=== PATIENT | female | born 1935 | race African-American/Black ===

== ENCOUNTER 2017-03-28 22:18 | Emergency (ER) | payer OTHER ==
[~2017-03-28 22:18] MED LIST: ? HTN MED; ACET500CAP PO; ANUSOL-HC25 MG; ASA5GR PO; ASAB PO; AT25 PO; ATEN100 PO; ATEN25 PO; ATEN50 PO; BISR PR; C2 PO; C25 PO; COLCH6 PO; CONSTULOSE PO; COZ50 PO; COZAAR100 MG PO; CYMBALTA60 PO; CYPROHEPTAD4 MG OR; DEPASPRINK PO; DEXA5B PO; DSS PO; EXELON4.6T TOP; FLORASTOR250 MG PO; FOSAMAX70 MG PO; HALF81 PO; HYDROMET1 ML PO; HYGROTON 25 MG25 MG OR; HYGROTON 25 MG25 MG PO; KDUR20 PO; KLOR-CON M2020 MEQ PO; KLOR-CON20 MEQ PO; LEVAQUIN750 MG PO; LIDODERM T; LOP25 PO; MAXZIDE PO; METAMUCIL CAN7 OZ PO; MIRALAXPKT PO; MUCINEX600 MG PO; NAMENDA10 MG PO; NAMENDA5 PO; NAP500 PO; NATURA2 OP; NEXIUM; NEXIUM40 PO; NORCO1 TA1 PO; NORV5 PO; P5 PO; PEP20 PO; PERI-COLACE1 TAB PO; POTASSIUM PO; PRIN20 PO; PROBIOTIC CAPSULES PO; PROTONIX PO; PROTONIXIV IV; SENOKOTS PO; SEROQUEL1C PO; SEROQUEL50 MG PO; SORB PO; SYSTANE OPH; TEARS NATURA OP; ULTRAM50 PO; XARELTO10 MG PO; Z300 PO
[2017-03-28 23:59] LABS: BASOPHILS 0.2 %; BASOPHILS ABSOLUTE 0.02 10/3/uL (0.0-0.16); EOSINOPHILS ABSOLUTE 0.09 10/3/uL (0.0-0.53); IMMATURE GRANULOCYTES 0.6 %; IMMATURE GRANULOCYTES ABSOLUTE 0.05 10/3/uL (0.0-0.11); LYMPHOCYTES 26.7 %; LYMPHOCYTES ABSOLUTE 2.29 10/3/uL (0.67-4.30); MEAN PLATELET VOLUME 9.6 fL (9.2-13.0); MONOCYTES ABSOLUTE 0.94 10/3/uL (0.21-1.20); NEUTROPHILS 60.5 %; NEUTROPHILS ABSOLUTE 5.19 10/3/uL (2.02-8.40); PLATELET COUNT 282 10/3/uL (150-400); RED CELL COUNT 4.76 10/6/uL (4.0-5.6)
[2017-03-29] LABS: ER CBC TAT 0 Hrs 10 Mins; HEMATOCRIT 40.1 % (36.0-48.0); HEMOGLOBIN 13.2 g/dL (12.0-16.0); MANUAL DIFF NO %; MEAN CORPUS HGB CONC 32.9 g/dL (32.0-36.0); MEAN CORPUSCULAR HEMOGLOB 27.7 pg (26.0-34.0); MEAN CORPUSCULAR VOLUME 84.2 fL (80-100); RBC DISTRIBUTION WIDTH 15.2 % (12.0-16.0); WHITE BLOOD CELLS 8.6 10/3/uL (4.5-10.5)
[2017-03-29 00:17] LABS: A/G RATIO 0.7 (0.7-1.9); ALBUMIN 2.9 G/DL (3.5-5.0); ALKALINE PHOSPHATASE 133 U/L (45-117); BUN (BLOOD UREA NITROGEN) 13 MG/DL (6-23); CALCIUM, SERUM 9.3 MG/DL (8.5-10.4); CHLORIDE, SERUM 107 MMOL/L (96-112); CO2 (CARBON DIOXIDE) 24 MMOL/L (24-34); CREATININE 0.55 MG/DL (0.55-1.02); GFR AFRICAN AMERICAN 100 ML/MIN (>=60); GFR NON AFRICAN AMERICAN 86 ML/MIN (>=60); GLOBULIN 4.3 G/DL (2.5-4.1); GLUCOSE, SERUM 96 MG/DL (60-99); POTASSIUM, SERUM 3.4 MMOL/L (3.5-5.3); SGOT(AST) 23 U/L (5-40); SGPT(ALT) 23 U/L (5-65); SODIUM, SERUM 140 MMOL/L (135-148); TOTAL BILIRUBIN 0.4 MG/DL (0-1.2); TOTAL PROTEIN 7.2 G/DL (6.0-8.5)
[2017-03-29] MEDS ORDERED: CONSTULOSE PO (22:53)
[2017-03-29] MEDS ORDERED: ASABAYER PEG (22:53)
[2017-03-29] MEDS ORDERED: SEROQUEL50 MG PEG (22:54)
[2017-03-29] MEDS ORDERED: LOP25 PEG (22:55)
[2017-03-29] MEDS ORDERED: DEPASPRINK PEG (22:55)
[2017-03-29] MEDS ORDERED: PEP20 PEG (22:57)
[2017-03-29] MEDS ORDERED: ULTRAM50 PEG (22:58)
[2017-03-29] MEDS ORDERED: NORV5 PEG (22:58)
[2017-03-29] MEDS ORDERED: X25 PEG (22:59)
[2017-03-29] MEDS ORDERED: CIP2 PEG (23:01)
[2017-03-29] MEDS ORDERED: DEXA5B PEG (23:02)
== END 2017-03-29 02:02 | disposition home or self-care (01) ==
LOC: ER 22:18
PROVIDERS: Specialist
DX: R19.7 Diarrhea, unspecified (principal); I10 Essential (primary) hypertension; F03.90 Unspecified dementia, unspecified severity, without behavioral disturbance, psychotic disturbance, mood disturbance, and anxiety; D64.9 Anemia, unspecified; Z88.2 Allergy status to sulfonamides; Z79.899 Other long term (current) drug therapy; Z79.82 Long term (current) use of aspirin
CPT/HCPCS: 80053; 81001; 85025; 99284

== ENCOUNTER 2017-03-29 17:48 | Inpatient (IN) | payer MEDICARE ==
[~2017-03-29] VITALS: Ht 167.6 cm; Wt 81.4 kg
--- NOTE | ~2017-03-29 | CN ---
Consultation Report [facility] [address] [place]. [address] NAME: CHARLA ASHFORD : 31 STATUS : ADM IN [facility]#: [id number] AGE: 82 ADM/REG DATE : 03/31/17 MR#: [id number] REPORT SERV DATE: 04/03/17 DICTATED BY: AIDEE DUCKWORTH DATE: 04/02/17 REPORT STATUS : Draft TRANSCRIBED BY: MODL DATE: 04/02/17 CONSULT DATE OF CONSULTATION: 04/01/2017 REFERRING PHYSICIAN: Hospitalist Service. REASON FOR CONSULTATION: Proctitis. BRIEF HISTORY: The patient is an 82-year-old female with advanced Lewy body dementia, was admitted to the hospital for constipation and general complaints of not feeling well. The patient has a history of dysphagia with a feeding tube as well as multiple other medical issues. She was doing well and was being treated with multiple laxatives and enemas as the CT scan showed a large fecal impaction. At the family's request, CT scan was repeated on 03/31/2017 evening to make sure the stool burden had decreased. CT scan showed severe proctitis as well as possible extraperitoneal air to a very small degree. Although the patient is demented, she is able to alert her family if she is not feeling well. They stated during this time, she has had no complaints and has been afebrile and tolerating tube feeds. She otherwise has been in her baseline state of health. REVIEW OF SYSTEMS: Review of systems was not able to be obtained due to the patient's dementia. PAST MEDICAL HISTORY: Significant for what was mentioned in HPI plus chronic anemia, irritable bowel syndrome, dysphagia, hypertension. SOCIAL HISTORY: Negative x3. FAMILY HISTORY: Noncontributory. MEDICATIONS: Reviewed and please see chart for full detail. PHYSICAL EXAMINATION: GENERAL: The patient is pleasant, in nontoxic appearing. HEENT: Head is normocephalic, atraumatic. CHEST: Clear to auscultation bilaterally. ABDOMEN: Soft, benign. RECTAL: No masses or bleeding or other abnormalities noted. EXTREMITIES: Warm and perfused. NEURO: She moves all extremities equally. PSYCH: She is largely demented although she can speak and is sometimes more clear than other times per her family. LABS: White cell count slightly elevated at 13. Remainder labs were reviewed. Consultation Report [facility] [address] [place] [address] NAME: CHARLA ASHFORD : 31 STATUS : ADM IN PAT#: [id number] AGE: 82 ADM/REG DATE : 03/31/17 MR#: [id number] REPORT SERV DATE: 04/03/17 DICTATED BY: AIDEE DUCKWORTH DATE: 04/02/17 REPORT STATUS : Draft TRANSCRIBED BY: MODL DATE: 04/02/17 IMAGING: CT scan done on 03/31/2017 was reviewed by me and with the radiologist. There is significant inflammation in the distal rectum. I do not appreciate any intraperitoneal air, but that was the report from the radiologist. There is no significant intraabdominal colitis or fluid or pneumoperitoneum. ASSESSMENT AND PLAN: This is an 82-year-old female with severe proctitis which I suspect is due to ulceration. I have had a long discussion with the family and they do not wish to have any sort of surgical procedures in light of her dementia. At this point, we will treat her with IV antibiotics and bowel rest and plan on repeating her CT scan in several days, and if things are improved at that time, we can restart tube feeds. We will follow along although at the family's request we do not want her to have surgery. SELAM/KAITLIN Aidee Duckworth MD / [id number] CC: Robin Castellanos MD
--- NOTE | ~2017-03-29 | HP ---
History And Physical [facility] [id number] [place]. [address] NAME: CHARLA CLEMENTS : 31 STATUS : ADM Hui PAT#: [id number] AGE: 82 ADM/REG DATE : 03/29/17 MR#: [id number] REPORT SERV DATE: 03/30/17 DICTATED BY: KENY KNOTT DATE: 03/29/17 REPORT STATUS : Draft TRANSCRIBED BY: MODL DATE: 03/29/17 DATE OF ADMISSION: 03/29/2017 CHIEF COMPLAINT: Diarrhea. HISTORY OF PRESENT ILLNESS: This is an 82-year-old female with advanced Lewy body dementia, dysphagia with feeding tube in place, chronic anemia, hypertension, who presents to the emergency room at [facility] with the above-mentioned complaint. History is obtained from the patient's daughter who is at bedside and reviewing data available on the [employer] system. According to the patient's daughter, she had been having semi-solid consistency stools about two or three times a day since last Wednesday. She says when she starts having the bowel movement she goes constantly for a couple hours at a time and they have to clean her numerous times until it stops. This was not how she used to be. During this time, she has had no fevers, chills, nor has she complained of any abdominal pain or discomfort. Actually, Mrs. Clements has advanced Lewy body dementia and hardly ever complains. So, she was finally brought to the emergency room here last night when she was evaluated and discharged home. They returned home, but her symptoms continued. She continued to have this diarrhea as they called it, and today they decided to bring her back to the emergency room to be reevaluated. In the emergency room, her CT scan of her abdomen and pelvis showed large stool bowel without any significant obstruction or other pathology. However, she did have a urinary tract infection along with a lactate of 3.3, and Hospitalist Service asked to admit her for further evaluation and treatment. At the time of my evaluation, she denied any chest pain or palpitations. She had no orthopnea. Mrs. Clements understands simple questions, but sometimes make unintelligible answers. Most of the review of systems was obtained from the patient's daughter and family members who take care of the patient at home. She has not had any cough, hemoptysis, night sweats, or weight loss. She has not had any fevers, chills, nausea, or vomiting. No bleeding from anywhere has been noticed. No other history of recent travel or exposures. PAST MEDICAL HISTORY: Significant for advanced or end-stage Lewy body dementia, history of chronic anemia, irritable bowel syndrome, dysphagia leading to feeding tube placement. She is followed by Dr. Darwin Moore from Gastroenterology. SOCIAL HISTORY: She does not smoke, drink, or use recreational drug. FAMILY HISTORY: Noncontributory. MEDICATIONS: Her medications at home were reviewed by me in the chart today and reordered by me. REVIEW OF SYSTEMS: As in history of present illness. All other systems were reviewed in detail and are quite unremarkable. History And Physical [address] [address] NAME: CHARLA CLEMENTS : 31 STATUS : ADM Hui PAT#: [id number] AGE: 82 ADM/REG DATE : 03/29/17 MR#: [id number] REPORT SERV DATE: 03/30/17 DICTATED BY: KENY KNOTT DATE: 03/29/17 REPORT STATUS : Draft TRANSCRIBED BY: KAITLIN DATE: 03/29/17 PHYSICAL EXAMINATION: GENERAL: This is a pleasant 82-year-old not in any acute distress. HEENT: Her head is atraumatic and normocephalic. She is alert, awake, oriented to time, place, and person. Pupils are equal, reacting to light and accommodating. External ocular muscles are intact. Membranes are moist and pink. Sclerae are nonicteric. NECK: Supple with no jugular venous distention, lymphadenopathy, or thyromegaly. LUNGS: Clear to auscultation with no wheezes, rubs, or crackles. HEART: Heart sounds were regular with no murmurs, rubs, or gallops. ABDOMEN: Soft and nontender. Bowel sounds are present. EXTREMITIES: No cyanosis, clubbing, or edema. NEURO: Grossly intact, although she has advanced dementia and does not follow commands or answer appropriately. VITAL SIGNS: Her temperature today was 98.4, pulse 100, respirations 16 a minute, blood pressure was 155/74, and oxygen saturations were 99% breathing 2 L of oxygen via nasal cannula. LABORATORY DATA: Reviewed on the [employer] system showed a sodium of 146, potassium 3.1, chloride 109, CO2 of 27, BUN was 14 with a creatinine of 0.58, and calcium was 8.9. Alkaline phosphatase was 131, ALT and AST were within normal limits. Lipase was 45. Her lactate was 3.3. CBC was essentially within normal limits. Urinalysis showed trace leukocyte esterase, nitrite was negative, there was 9 wbc's and few bacteria. Films of the CT scan of her abdomen and pelvis were reviewed by me on the PACs today and interpreted by me, official Radiology comments were also reviewed. There is large stool ball seen and without any obstruction. Stool Hemoccult was positive as well. IMPRESSION: 1. Urinary tract infection. 2. Sepsis. 3. Advanced Lewy body dementia. 4. Chronic dysphagia with feeding tube. 5. Chronic anemia. 6. Hypertension. 7. Hysterectomy. PLAN: We will admit Ms Clements to the Hospitalist Service with telemetry for a 24-hour observation period. After cultures are drawn, we will start her on empiric IV antibiotics. We will check a repeat lactate as well and a procalcitonin. We will replace potassium. Follow CBC, CMP in the morning. We will also consult Dr. Darwin Moore to see her in the morning. A stool Clostridium difficile assay has been sent as well. We will continue all her other medications and treatments at this time, and place her on unfractionated heparin History And Physical [address] [address] NAME: CHARLA CLEMENTS : 31 STATUS : ADM Hui PAT#: [id number] AGE: 82 ADM/REG DATE : 03/29/17 MR#: [id number] REPORT SERV DATE: 03/30/17 DICTATED BY: KENY KNOTT DATE: 03/29/17 REPORT STATUS : Draft TRANSCRIBED BY: MODHarjinder DATE: 03/29/17 for DVT prophylaxis while here. I have discussed the above plans with the patient's daughter. Questions were answered and they are agreeable to the above recommendations. /KAITLIN Keny Knott M.D. / [id number] CC: Robin Castellanos MD
--- NOTE | ~2017-03-29 | DS ---
Discharge Summary [facility] [address] [place]. [address] NAME: CHARLA ASHFORD : 31 STATUS : DIS IN PAT#: [id number] AGE: 82 ADM/REG DATE : 03/31/17 MR#: [id number] REPORT SERV DATE: 04/05/17 DICTATED BY: ROBIN WORTHY DATE: 04/04/17 REPORT STATUS : Draft TRANSCRIBED BY: MODL DATE: 04/04/17 ADMISSION DATE: 03/31/2017 DISCHARGE DATE: 04/04/2017 DISCHARGE DIAGNOSES: 1. Severe proctitis, secondary to a fecal impaction. 2. Hypernatremia, resolving. 3. Hypokalemia. 4. Advanced Lewy body dementia. 5. Dysphagia with chronic feeding tube. 6. Initial admission diagnosis of urinary tract infection with sepsis, ruled out. 7. Hypertension. 8. Anemia of chronic disease. 9. Debilitated. CONSULTANTS: Dr. Duckworth, of General Surgery. PROCEDURES: None. HOSPITAL COURSE: This is an 82-year-old lady who was admitted to the hospital with initial diagnosis of urinary tract infection with sepsis. For details, please refer to excellent H and P dictated by Dr. Keny Scott. Upon admission, CT scan was clear. The patient was actually suffering from a fecal impaction and overflow diarrhea more than urinary tract infection with sepsis. The patient was given 2 rounds of enema as well as 2 L of GoLYTELY, and the patient has produced large amounts of feces. The patient was to be discharged on March 31 when the patient's family member apposed the discharge because they were convinced that the patient still had fecal impaction. CT of the scan was performed again at family's request to showed that she did not have any fecal impaction anymore. Interestingly, the repeat CT showed severe proctitis after evacuation of the fecal impaction. The degree of proctitis was severe enough to suspect possible septal ulceration and mucosal tears. The patient otherwise had completely benign vital signs and electrolytes and labs as well as physical exams. General Surgery was consulted who agreed to monitoring patient on antibiotics alone. The patient was monitored for 2 days and all throughout which patient's white blood cell count remained stable with normal procalcitonin levels. The patient was also clinically appearing very comfortable. The patient's tube feedings were started on April 03, and the patient had a repeat CT scan that was actually read as slightly more severe proctitis done prior to, but the repeat CT was performed with IV contrast which showed the mucosal inflammation better than prior CT which was done without contrast. Thus, the consensus is that the patient's proctitis is probably not any worse especially since the patient is tolerating diet well without any symptoms and with normal vital signs and normal labs. The patient will simply have a very close outpatient followup with a good bowel regimen so that she does not develop any more constipation or fecal impaction in the future. This was fortunate given the patient's baseline debilitated functional status with advanced Lewy body dementia because the patient will not have tolerated the surgery well. All of the above was explained in detail with the patient's family who understood. The patient is now being discharged home with home health with close Discharge Summary [address] [address] NAME: CHARLA ASHFORD : 31 STATUS : DIS IN PAT#: [id number] AGE: 82 ADM/REG DATE : 03/31/17 MR#: [id number] REPORT SERV DATE: 04/05/17 DICTATED BY: ROBIN WORTHY DATE: 04/04/17 REPORT STATUS : Draft TRANSCRIBED BY: KAITLIN DATE: 04/04/17 outpatient followup. DISPOSITION: Home with home health. DISCHARGE MEDICATIONS: No changes except for recommendation of bowel regimen with daily MiraLAX as well as lactulose. Of note, the patient's family has been holding lactulose which have caused the fecal impaction in the first place and thus the patient's family was thoroughly educated to not hold the lactulose or MiraLAX for that matter. The patient's family was educated regarding importance of maintenance regimen other than waiting for patient to be impacted before starting bowel regimen. FOLLOWUP: 1. Please follow up with PCP in the next one to two weeks. 2. Please follow up with Dr. Singh, General Surgery, in the next two to three weeks. A total of 35 minutes spent in coordinating this patient's discharge today. HAO/KAITLIN Robin Worthy MD / [id number]
[2017-03-29 20:57] LABS: BASOPHILS 0.2 %; BASOPHILS ABSOLUTE 0.02 10/3/uL (0.0-0.16); EOSINOPHILS 0.9 %; EOSINOPHILS ABSOLUTE 0.09 10/3/uL (0.0-0.53); ER CBC TAT 0 Hrs 11 Mins; HEMATOCRIT 40.2 % (36.0-48.0); HEMOGLOBIN 12.9 g/dL (12.0-16.0); IMMATURE GRANULOCYTES 0.5 %; IMMATURE GRANULOCYTES ABSOLUTE 0.05 10/3/uL (0.0-0.11); LYMPHOCYTES 22.1 %; LYMPHOCYTES ABSOLUTE 2.27 10/3/uL (0.67-4.30); MEAN CORPUS HGB CONC 32.1 g/dL (32.0-36.0); MEAN CORPUSCULAR HEMOGLOB 27.3 pg (26.0-34.0); MEAN CORPUSCULAR VOLUME 85.2 fL (80-100); MEAN PLATELET VOLUME 9.9 fL (9.2-13.0); MONOCYTES 7.1 %; MONOCYTES ABSOLUTE 0.73 10/3/uL (0.21-1.20); NEUTROPHILS 69.2 %; NEUTROPHILS ABSOLUTE 7.13 10/3/uL (2.02-8.40); PLATELET COUNT 289 10/3/uL (150-400); RBC DISTRIBUTION WIDTH 15.6 % (12.0-16.0); RED CELL COUNT 4.72 10/6/uL (4.0-5.6); WHITE BLOOD CELLS 10.3 10/3/uL (4.5-10.5)
[2017-03-29 20:58] LABS: MANUAL DIFF NO %
[2017-03-29 21:08] LABS: ASCORBIC ACID (UR NOT ORDER) 20 (NEG); BILIRUBIN, URINE NEGATIVE (NEG); ER URINALYSIS TAT 0 Hrs 25 Mins; KETONE, URINE NEGATIVE (NEG); LEUKOCYTE ESTERASE(NOT OR TRACE (NEG); NITRITE (URINE) POS (NEG); WBC (NOT ORDERED) (RFLEX) 9 (0-5)
[2017-03-29 21:12] LABS: A/G RATIO 0.7 (0.7-1.9); ALKALINE PHOSPHATASE 131 U/L (45-117); BUN (BLOOD UREA NITROGEN) 14 MG/DL (6-23); CALCIUM, SERUM 8.9 MG/DL (8.5-10.4); CHLORIDE, SERUM 109 MMOL/L (96-112); CO2 (CARBON DIOXIDE) 27 MMOL/L (24-34); CREATININE 0.58 MG/DL (0.55-1.02); GFR AFRICAN AMERICAN 98 ML/MIN (>=60); GFR NON AFRICAN AMERICAN 85 ML/MIN (>=60); GLOBULIN 4.4 G/DL (2.5-4.1); GLUCOSE, SERUM 99 MG/DL (60-99); POTASSIUM, SERUM 3.1 MMOL/L (3.5-5.3); SGOT(AST) 21 U/L (5-40); SGPT(ALT) 26 U/L (5-65); SODIUM, SERUM 146 MMOL/L (135-148); TOTAL BILIRUBIN 0.6 MG/DL (0-1.2); TOTAL PROTEIN 7.4 G/DL (6.0-8.5)
[2017-03-29 21:14] LABS: LACTATE 3.3 MMOL/L (0.3-2.4)
[2017-03-29] MEDS ORDERED: CONSTULOSE PO (22:53)
[2017-03-29] MEDS ORDERED: ASABAYER PEG (22:53)
[2017-03-29] MEDS ORDERED: SEROQUEL50 MG PEG (22:54)
[2017-03-29] MEDS ORDERED: DEPASPRINK PEG (22:55)
[2017-03-29] MEDS ORDERED: LOP25 PEG (22:55)
[2017-03-29] MEDS ORDERED: PEP20 PEG (22:57)
[2017-03-29] MEDS ORDERED: NORV5 PEG (22:58)
[2017-03-29] MEDS ORDERED: ULTRAM50 PEG (22:58)
[2017-03-29] MEDS ORDERED: X25 PEG (22:59)
[2017-03-29] MEDS ORDERED: CIP2 PEG (23:01)
[2017-03-29] MEDS ORDERED: DEXA5B PEG (23:02)
[2017-03-30 03:09] LABS: BASOPHILS 0.2 %; BASOPHILS ABSOLUTE 0.02 10/3/uL (0.0-0.16); EOSINOPHILS 1.7 %; EOSINOPHILS ABSOLUTE 0.15 10/3/uL (0.0-0.53); HEMATOCRIT 41.3 % (36.0-48.0); HEMOGLOBIN 13.4 g/dL (12.0-16.0); IMMATURE GRANULOCYTES 0.3 %; IMMATURE GRANULOCYTES ABSOLUTE 0.03 10/3/uL (0.0-0.11); LYMPHOCYTES 24.2 %; LYMPHOCYTES ABSOLUTE 2.16 10/3/uL (0.67-4.30); MEAN CORPUS HGB CONC 32.4 g/dL (32.0-36.0); MEAN CORPUSCULAR HEMOGLOB 27.7 pg (26.0-34.0); MEAN CORPUSCULAR VOLUME 85.3 fL (80-100); MEAN PLATELET VOLUME 10.2 fL (9.2-13.0); MONOCYTES 9.9 %; MONOCYTES ABSOLUTE 0.88 10/3/uL (0.21-1.20); NEUTROPHILS 63.7 %; NEUTROPHILS ABSOLUTE 5.69 10/3/uL (2.02-8.40); PLATELET COUNT 272 10/3/uL (150-400); RBC DISTRIBUTION WIDTH 15.4 % (12.0-16.0); RED CELL COUNT 4.84 10/6/uL (4.0-5.6); WHITE BLOOD CELLS 8.9 10/3/uL (4.5-10.5)
[2017-03-30 03:11] LABS: MANUAL DIFF NO %
[2017-03-30 03:21] LABS: BUN (BLOOD UREA NITROGEN) 11 MG/DL (6-23); CALCIUM, SERUM 8.8 MG/DL (8.5-10.4); CHLORIDE, SERUM 109 MMOL/L (96-112); CO2 (CARBON DIOXIDE) 29 MMOL/L (24-34); CREATININE 0.49 MG/DL (0.55-1.02); GFR AFRICAN AMERICAN 104 ML/MIN (>=60); GFR NON AFRICAN AMERICAN 89 ML/MIN (>=60); GLUCOSE, SERUM 106 MG/DL (60-99); PHOSPHORUS, SERUM 2.3 MG/DL (2.5-4.5); SODIUM, SERUM 146 MMOL/L (135-148)
[2017-03-30 03:22] LABS: POTASSIUM, SERUM 3.8 MMOL/L (3.5-5.3)
[2017-03-31 08:58] LABS: BUN (BLOOD UREA NITROGEN) 6 MG/DL (6-23); CALCIUM, SERUM 8.7 MG/DL (8.5-10.4); CHLORIDE, SERUM 115 MMOL/L (96-112); CO2 (CARBON DIOXIDE) 24 MMOL/L (24-34); CREATININE 0.43 MG/DL (0.55-1.02); GFR AFRICAN AMERICAN 108 ML/MIN (>=60); GFR NON AFRICAN AMERICAN 93 ML/MIN (>=60); GLUCOSE, SERUM 67 MG/DL (60-99); PHOSPHORUS, SERUM 2.4 MG/DL (2.5-4.5); POTASSIUM, SERUM 3.2 MMOL/L (3.5-5.3); SODIUM, SERUM 150 MMOL/L (135-148)
[2017-03-31] MEDS ORDERED: MIRALAX POWDER1 PKT PO (10:20)
[2017-04-01 05:46] LABS: BASOPHILS 0.1 %; BASOPHILS ABSOLUTE 0.01 10/3/uL (0.0-0.16); EOSINOPHILS 0.4 %; EOSINOPHILS ABSOLUTE 0.06 10/3/uL (0.0-0.53); HEMOGLOBIN 11.6 g/dL (12.0-16.0); IMMATURE GRANULOCYTES 0.3 %; IMMATURE GRANULOCYTES ABSOLUTE 0.04 10/3/uL (0.0-0.11); LYMPHOCYTES 13.8 %; LYMPHOCYTES ABSOLUTE 1.86 10/3/uL (0.67-4.30); MEAN CORPUS HGB CONC 32.5 g/dL (32.0-36.0); MEAN CORPUSCULAR HEMOGLOB 27.6 pg (26.0-34.0); MEAN CORPUSCULAR VOLUME 84.8 fL (80-100); MEAN PLATELET VOLUME 10.2 fL (9.2-13.0); MONOCYTES 6.9 %; MONOCYTES ABSOLUTE 0.93 10/3/uL (0.21-1.20); NEUTROPHILS 78.5 %; NEUTROPHILS ABSOLUTE 10.54 10/3/uL (2.02-8.40); PLATELET COUNT 253 10/3/uL (150-400); RBC DISTRIBUTION WIDTH 15.6 % (12.0-16.0); RED CELL COUNT 4.21 10/6/uL (4.0-5.6)
[2017-04-01 05:47] LABS: HEMATOCRIT 35.7 % (36.0-48.0); MANUAL DIFF NO %; WHITE BLOOD CELLS 13.4 10/3/uL (4.5-10.5)
[2017-04-01 05:57] LABS: BUN (BLOOD UREA NITROGEN) 5 MG/DL (6-23); CALCIUM, SERUM 8.7 MG/DL (8.5-10.4); CHLORIDE, SERUM 113 MMOL/L (96-112); CO2 (CARBON DIOXIDE) 22 MMOL/L (24-34); CREATININE 0.45 MG/DL (0.55-1.02); GFR AFRICAN AMERICAN 107 ML/MIN (>=60); GFR NON AFRICAN AMERICAN 92 ML/MIN (>=60); SODIUM, SERUM 147 MMOL/L (135-148)
[2017-04-01 05:58] LABS: GLUCOSE, SERUM 87 MG/DL (60-99); POTASSIUM, SERUM 2.7 MMOL/L (3.5-5.3)
[2017-04-02 07:15] LABS: BUN (BLOOD UREA NITROGEN) 7 MG/DL (6-23); CALCIUM, SERUM 8.7 MG/DL (8.5-10.4); CHLORIDE, SERUM 116 MMOL/L (96-112); CO2 (CARBON DIOXIDE) 23 MMOL/L (24-34); CREATININE 0.44 MG/DL (0.55-1.02); GFR AFRICAN AMERICAN 107 ML/MIN (>=60); GFR NON AFRICAN AMERICAN 93 ML/MIN (>=60); GLUCOSE, SERUM 82 MG/DL (60-99); POTASSIUM, SERUM 3.1 MMOL/L (3.5-5.3); SODIUM, SERUM 150 MMOL/L (135-148)
[2017-04-02 07:36] LABS: PROCALCITONIN 0.07 ng/mL (<0.5)
[2017-04-02 08:00] LABS: BASOPHILS 0.1 %; BASOPHILS ABSOLUTE 0.01 10/3/uL (0.0-0.16); EOSINOPHILS 0.9 %; EOSINOPHILS ABSOLUTE 0.08 10/3/uL (0.0-0.53); IMMATURE GRANULOCYTES 0.5 %; IMMATURE GRANULOCYTES ABSOLUTE 0.04 10/3/uL (0.0-0.11); LYMPHOCYTES 18.5 %; LYMPHOCYTES ABSOLUTE 1.59 10/3/uL (0.67-4.30); MANUAL DIFF NO %; MEAN CORPUS HGB CONC 32.4 g/dL (32.0-36.0); MEAN CORPUSCULAR VOLUME 83.5 fL (80-100); MEAN PLATELET VOLUME 10.1 fL (9.2-13.0); MONOCYTES 8.3 %; MONOCYTES ABSOLUTE 0.71 10/3/uL (0.21-1.20); NEUTROPHILS 71.7 %; NEUTROPHILS ABSOLUTE 6.15 10/3/uL (2.02-8.40); PLATELET COUNT 230 10/3/uL (150-400); RBC DISTRIBUTION WIDTH 15.9 % (12.0-16.0); RED CELL COUNT 4.07 10/6/uL (4.0-5.6); WHITE BLOOD CELLS 8.6 10/3/uL (4.5-10.5)
[2017-04-03 06:50] LABS: BASOPHILS 0.1 %; BASOPHILS ABSOLUTE 0.01 10/3/uL (0.0-0.16); EOSINOPHILS 1.4 %; EOSINOPHILS ABSOLUTE 0.11 10/3/uL (0.0-0.53); HEMATOCRIT 33.4 % (36.0-48.0); HEMOGLOBIN 10.7 g/dL (12.0-16.0); IMMATURE GRANULOCYTES 0.5 %; IMMATURE GRANULOCYTES ABSOLUTE 0.04 10/3/uL (0.0-0.11); LYMPHOCYTES ABSOLUTE 1.54 10/3/uL (0.67-4.30); MEAN CORPUSCULAR HEMOGLOB 26.8 pg (26.0-34.0); MEAN CORPUSCULAR VOLUME 83.5 fL (80-100); MEAN PLATELET VOLUME 10.4 fL (9.2-13.0); MONOCYTES 9.1 %; NEUTROPHILS 68.9 %; NEUTROPHILS ABSOLUTE 5.29 10/3/uL (2.02-8.40); PLATELET COUNT 244 10/3/uL (150-400); RBC DISTRIBUTION WIDTH 15.7 % (12.0-16.0); WHITE BLOOD CELLS 7.7 10/3/uL (4.5-10.5)
[2017-04-03 06:51] LABS: MANUAL DIFF NO %
[2017-04-03 07:02] LABS: BUN (BLOOD UREA NITROGEN) 5 MG/DL (6-23); CALCIUM, SERUM 8.9 MG/DL (8.5-10.4); CHLORIDE, SERUM 114 MMOL/L (96-112); CO2 (CARBON DIOXIDE) 24 MMOL/L (24-34); CREATININE 0.53 MG/DL (0.55-1.02); GFR AFRICAN AMERICAN 101 ML/MIN (>=60); GFR NON AFRICAN AMERICAN 87 ML/MIN (>=60); POTASSIUM, SERUM 3.2 MMOL/L (3.5-5.3); SODIUM, SERUM 148 MMOL/L (135-148)
[2017-04-03 07:04] LABS: GLUCOSE, SERUM 117 MG/DL (60-99)
[2017-04-03 07:22] LABS: PROCALCITONIN 0.06 ng/mL (<0.5)
[2017-04-03 11:46] LABS: PHOSPHORUS, SERUM 2.1 MG/DL (2.5-4.5)
[2017-04-04 05:14] LABS: BASOPHILS 0.2 %; BASOPHILS ABSOLUTE 0.01 10/3/uL (0.0-0.16); EOSINOPHILS 1.5 %; HEMATOCRIT 32.7 % (36.0-48.0); HEMOGLOBIN 10.9 g/dL (12.0-16.0); IMMATURE GRANULOCYTES 0.9 %; IMMATURE GRANULOCYTES ABSOLUTE 0.06 10/3/uL (0.0-0.11); LYMPHOCYTES 22.5 %; LYMPHOCYTES ABSOLUTE 1.47 10/3/uL (0.67-4.30); MEAN CORPUS HGB CONC 33.3 g/dL (32.0-36.0); MEAN CORPUSCULAR HEMOGLOB 27.9 pg (26.0-34.0); MEAN CORPUSCULAR VOLUME 83.6 fL (80-100); MEAN PLATELET VOLUME 10.2 fL (9.2-13.0); MONOCYTES 10.1 %; MONOCYTES ABSOLUTE 0.66 10/3/uL (0.21-1.20); NEUTROPHILS 64.8 %; NEUTROPHILS ABSOLUTE 4.22 10/3/uL (2.02-8.40); PLATELET COUNT 277 10/3/uL (150-400); RBC DISTRIBUTION WIDTH 15.6 % (12.0-16.0); RED CELL COUNT 3.91 10/6/uL (4.0-5.6); WHITE BLOOD CELLS 6.5 10/3/uL (4.5-10.5)
[2017-04-04 05:18] LABS: BUN (BLOOD UREA NITROGEN) 6 MG/DL (6-23); CALCIUM, SERUM 9.1 MG/DL (8.5-10.4); CHLORIDE, SERUM 112 MMOL/L (96-112); CO2 (CARBON DIOXIDE) 23 MMOL/L (24-34); CREATININE 0.57 MG/DL (0.55-1.02); GFR AFRICAN AMERICAN 99 ML/MIN (>=60); GFR NON AFRICAN AMERICAN 85 ML/MIN (>=60); SODIUM, SERUM 144 MMOL/L (135-148)
[2017-04-04 05:20] LABS: MANUAL DIFF NO %
[2017-04-04 05:21] LABS: GLUCOSE, SERUM 157 MG/DL (60-99)
[2017-04-04] MEDS ORDERED: LEVAQUIN750 MG PO (12:08)
[2017-04-04] MEDS ORDERED: FLAG500TAB PO (12:09)
== END 2017-04-04 15:16 | disposition home health service (06) | DRG 394 ==
LOC: ER 17:48 → 6NO 23:09 → ENPENDDIS 23:09 → 6NO 03-31 17:00
PROVIDERS: Internal Medicine; Internal Medicine Pulmonary Disease; Nurse Practitioner Acute Care; Student in an Organized Health Care Education/Training Program
DX: K62.89 Other specified diseases of anus and rectum (principal); K62.6 Ulcer of anus and rectum; E87.0 Hyperosmolality and hypernatremia; G31.83 Neurocognitive disorder with Lewy bodies; F02.80 Dementia in other diseases classified elsewhere, unspecified severity, without behavioral disturbance, psychotic disturbance, mood disturbance, and anxiety; R13.10 Dysphagia, unspecified; D64.9 Anemia, unspecified; E87.6 Hypokalemia; I10 Essential (primary) hypertension; D63.8 Anemia in other chronic diseases classified elsewhere; R62.7 Adult failure to thrive; K56.41 Fecal impaction; K63.89 Other specified diseases of intestine; Z90.710 Acquired absence of both cervix and uterus; Z93.1 Gastrostomy status
CPT/HCPCS: 74176; 74177; 80048; 80053; 81001; 83605; 83690; 83735; 84100; 84132; 84145; 85025; 87040; 87045; 87046; 87046-59; 87328; 87329; 87493; 87493-59; 87899; 87899-59; 89055; 96374; 99285; A9270-GY; J1956; J2543; Q9967